=== PATIENT | male | born 1960 | race African-American/Black ===

== ENCOUNTER 2018-10-09 13:52 | Inpatient (IN) | payer OTHER ==
[2018-10-09 18:53] VITALS: BMI 28.0
[2018-10-09] MEDS ORDERED: IBUPROFEN 400 MG TABLET (FP) PO PRN (19:55)
[2018-10-09] MEDS ORDERED: MENTHOL/PHENOL 1 EACH UD MM PRN (19:55)
[2018-10-09] MEDS ORDERED: NICOTINE POLACRILEX 2 MG GUM BC PRN (19:55)
[2018-10-09] MEDS ORDERED: hydrOXYzine PAMOATE 50 MG CAPSULE (FP) PO PRN (19:55)
[2018-10-09] MEDS ORDERED: ACETAMINOPHEN 325 MG TABLET (FP) PO PRN (19:55)
[2018-10-09] MEDS ORDERED: guaiFENesin/D-METHORPHAN HB 10 ML UNIT-DOSE CUPS PO PRN (19:55)
[2018-10-09] MEDS ORDERED: P-EPHED 60MG/TRIPROLIDI 2.5MG TABLET PO PRN (19:55)
[2018-10-09] MEDS ORDERED: MAGNESIUM CITRATE 300 ML BOTTLE PO PRN (19:55)
[2018-10-09] MEDS ORDERED: MAG HYDROX/AL HYDROX/SIMETH 30 ML UNIT-DOSE CUP PO PRN (19:55)
[2018-10-09] MEDS ORDERED: LOPERAMIDE HCL 2 MG CAPSULE PO PRN (19:55)
[2018-10-09] MEDS ORDERED: MAGNESIUM HYDROX 2400MG/30ML ORAL SUSPENSION 30 ML CUP PO PRN (19:55)
--- NOTE | 2018-10-09 20:00 | HP ---
COWS - Scale Resting Pulse: 0= [place] 80 or Below Sweatin= Chills/Flushing Restless Observation: 1= Difficult to Sit Still Pupil Size: 0= Normal to Room Light Bone or Joint Aches: 2= Severe Diffuse Aches Runny Nose/ Eye Tearin= Runny Nose/Eyes GI Upset > 30mins: 2= Nausea/Diarrhea Tremor Observation: 1= Tremor [place], Not Seen Yawning Observation: 1= 1-2x During Session Anxiety or Irritability: 1=Feels Anxious/Irritable Goose Flesh Skin: 3=Piloerection COWS Score: 14 CIWA Score - Admission Criteria OAS Guidelines: Admission for Medically Managed Detox: Requires at least one of the followin. CIWA greater than 12 2. Seizures within the past 24 hours 3. Delirium tremens within the past 24 hours 4. Hallucinations within the past 24 hours 5. Acute intervention needed for co occurring medical disorder 6. Acute intervention needed for co occurring psychiatric disorder 7. Severe withdrawal that cannot be handled at a lower level of care (continued vomiting, continued diarrhea, abnormal vital signs) requiring intravenous medication and/or fluids 8. Admission [facility] Chief Complaint: WITHDRAWAL SYMPTOMS Allergies/Adverse Reactions: Allergies Allergy/AdvReac Type Severity Reaction Status Date / Time No Known Allergies Allergy Verified 10/09/18 18:43 History of Present Illness: 58 Y.O. MAN WITH A HISTORY OF HEROIN DEPENDENCE IS HERE SEEKING HIS FIRST ADMISSION TO DETOX. HE REPORTS THE LONGEST PERIOD OF ILLICIT DRUG ABSTINENCES HAS BEE "A FEW MONTHS". PMx: Htn, OA, Aortic aneurysm, incomplete bladder emptying, straight catherizes 4-5 x day, neuropathy, ambulates with the use of a cane Exam Limitations: Physical Impairment (A) - Ebola screening Have you traveled outside of the country in the last 21 days: No Have you had contact with anyone from an Ebola affected area: No Have you been sick,other than usual withdrawal symptoms: No Do you have a fever: No - Review of Systems Constitutional: Chills, Loss of Appetite, Night Sweats, Unintentional Wgt. Loss EENT: reports: Tearing, Nose Congestion, Dental Problems Respiratory: reports: No Symptoms reported GI: reports: Nausea, Abdominal cramping : reports: Other (URINARY RETENTION) Musculoskeletal: reports: Back Pain, Neck Pain Integumentary: reports: No Symptoms Reported Neuro: reports: Headache, Weakness, Unsteady Gait Endocrine: reports: No Symptoms Reported Hematology: reports: No Symptoms Reported Psychiatric: reports: Judgement Intact, Mood/Affect Appropiate, Orientated x3 Other Systems: Reviewed and Negative Patient History - Patient Medical History Hx Anemia: No Hx Asthma: No Hx Chronic Obstructive Pulmonary Disease (COPD): No Hx Cancer: No Hx Cardiac Disorders: No Hx Congestive Heart Failure: No Hx Hypertension: Yes Hx Hypercholesterolemia: No Hx Pacemaker: No HX Cerebrovascular Accident: No Hx Seizures: No Hx Dementia: No Hx Diabetes: No Hx Gastrointestinal Disorders: No Hx Liver Disease: No Hx Genitourinary Disorders: No Hx Sexually Transmitted Disorders: No Hx Renal Disease (ESRD): No Hx Thyroid Disease: No Hx Human Immunodeficiency Virus (HIV): No Hx Hepatitis C: No Hx Depression: No Hx Suicide Attempt: No Hx Bipolar Disorder: No Hx Schizophrenia: No Other Medical History: Aortic aneurysm 2003 - Patient Surgical History Past Surgical History: Yes Hx Neurologic Surgery: No Hx Cataract Extraction: No Hx Cardiac Surgery: No Hx Lung Surgery: No Hx Breast Surgery: No Hx Breast Biopsy: No Hx Abdominal Surgery: No Hx Appendectomy: No Hx Cholecystectomy: No Hx Genitourinary Surgery: No Hx Section: No Hx Orthopedic Surgery: Yes (Left knee 06/2017) Anesthesia Reaction: No - PPD History Previous Implant?: Yes Documented Results: Negative w/o proof PPD to be Administered?: Yes - Reproductive History Patient is a Female of Child Bearing Age (11 -55 yrs old): No - Smoking Cessation Smoking history: Current every day smoker Have you smoked in the past 12 months: Yes Aproximately how many cigarettes per day: 20 Initiated information on smoking cessation: Yes 'Breaking Loose' booklet given: 10/09/18 - Substance & Tx. History Hx Alcohol Use: No Hx Substance Use: No Substance Use Type: Heroin Hx Substance Use Treatment: No - Substances Abused Heroin Route: Inhalation Frequency: Daily Amount used: 6 BAGS Age of first use: 28 Date of Last Use: 10/09/18 Family Disease History - Family Disease History Family Disease History: CA: Sister Admission Physical Exam BHS - Vital Signs Vital Signs: Vital Signs - 24 hr 10/09/18 18:50 Temperature 97.4 F L Pulse Rate 69 Respiratory 18 Rate Blood Pressure 122/70 - Physical General Appearance: Yes: Sweating HEENTM: Yes: Within Normal Limits, Hearing grossly Normal, Normocephalic, Normal Voice Respiratory: Yes: Chest Non-Tender, Lungs Clear, Normal Breath Sounds, No Respiratory Distress, No Accessory Muscle Use Neck: Yes: Within Normal Limits, No masses,lesions,Nodules Breast: Yes: Breast Exam Deferred Cardiology: Yes: Regular Rhythm, Regular Rate Abdominal: Yes: Normal Bowel Sounds, Non Tender Genitourinary: Yes: Retention Back: Yes: Normal Inspection Musculoskeletal: Yes: Back pain, Joint Stiffness, Other (UNSTEADY,ANTALGIC GAIT) Extremities: Yes: Normal Capillary Refill, Normal Inspection Neurological: Yes: Fully Oriented, Alert, Normal Mood/Affect, Normal Response Integumentary: Yes: Normal Color, Warm Lymphatic: Yes: Within Normal Limits - Diagnostic (1) Hypertension Current Visit: Yes Status: Chronic (2) Opioid dependence with withdrawal Current Visit: Yes Status: Chronic (3) History of aortic aneurysm Current Visit: Yes Status: Acute (4) Urinary retention with incomplete bladder emptying Current Visit: Yes Status: Chronic Comment: SELF-CATHERIZES (5) Osteoarthritis Current Visit: Yes Status: Chronic (6) Unsteady gait Current Visit: Yes Status: Chronic (7) Use of cane as ambulatory aid Current Visit: Yes Status: Chronic (8) Neuropathy Current Visit: Yes Status: Chronic (9) Nicotine dependence Current Visit: Yes Status: Chronic Cleared for Admission [facility] - Detox or Rehab [facility] Level of Care: Medically Managed Detox Regimen/Protocol: Methadone [facility] Breath Alcohol Content Breath Alcohol Content: 0 Urine Drug Screen - Results Drug Screen Negative: No Urine Drug Screen Results: NORBERTO-Cocaine, OPI-Opiates, MDMA-Ecstasy
[2018-10-09] MEDS ORDERED: METHADONE HCL 10 MG TABLET (FOR DETOX USE ONLY) PO ONE ×2 (20:15→23:00)
[2018-10-09] MEDS: GABAPENTIN 400 MG CAPSULE (FP) PO SCH (23:17)
[2018-10-09] MEDS: THIAMINE HCL 100 MG TABLET (FP) PO SCH (23:17)
[2018-10-09] MEDS: diazePAM 5 MG TABLET PO PRN (23:19)
[2018-10-09] MEDS ORDERED: LABETALOL HCL 100 MG TABLET (FP) ONE (23:30)
[2018-10-09] MEDS: LABETALOL HCL 200 MG TABLET (FP) PO SCH (23:34)
[2018-10-10] MEDS: GABAPENTIN 400 MG CAPSULE (FP) PO SCH ×3 (06:27→22:18)
[2018-10-10 09:59] LABS: HEMATOCRIT 38.1 % (35.4-49); HEMOGLOBIN 12.5 GM/dL (11.7-16.9); MCH 29.2 pg (25.7-33.7); MCHC 32.8 g/dl (32.0-35.9); MEAN CELL VOLUME 89.1 fl (80-96); MEAN PLT VOLUME 9.3 fl (7.5-11.1); PLATELET COUNT 157 K/MM3 (134-434); RBC 4.27 M/mm3 (4.00-5.60); WHITE BLOOD COUNT 6.7 K/mm3 (4.0-10.0)
[2018-10-10] MEDS ORDERED: METHADONE HCL 10 MG TABLET (FOR DETOX USE ONLY) PO ONE (10:00)
[2018-10-10] MEDS: PRENATAL VITAMINS W/ FOLIC ACID TABLET (FP) PO SCH (10:14)
[2018-10-10] MEDS: diazePAM 5 MG TABLET PO PRN (10:14)
[2018-10-10] MEDS: NICOTINE 21 MG/24 HOURS TOPICAL PATCH TD SCH (10:15)
[2018-10-10] MEDS: LISINOPRIL 20 MG TABLET (FP) PO SCH (10:17)
[2018-10-10 10:45] LABS: ALBUMIN 3.8 g/dl (3.4-5.0); ALK PHOS 89 U/L (45-117); ANION GAP 4 MMOL/L (8-16); BILIRUBIN,TOTAL 1.4 mg/dL (0.2-1); BLOOD UREA NITROGEN 18 mg/dL (7-18); CHLORIDE 105 mmol/L (98-107); CO2 31 mmol/L (21-32); CREATININE 0.7 mg/dL (0.55-1.3); GLUCOSE,RANDOM 84 mg/dL (74-106); POTASSIUM 4.1 mmol/L (3.5-5.1); SGOT/AST 26 U/L (15-37); SGPT/ALT 25 U/L (13-61); SODIUM 140 mmol/L (136-145); TOT PROT 6.5 g/dl (6.4-8.2)
--- NOTE | 2018-10-10 10:49 | PN ---
BHS COWS - Scale Resting Pulse: 0= [place] 80 or Below Sweatin=Flushed/Facial Moisture Restless Observation: 1= Difficult to Sit Still Pupil Size: 0= Normal to Room Light Bone or Joint Aches: 2= Severe Diffuse Aches Runny Nose/ Eye Tearin= Runny Nose/Eyes GI Upset > 30mins: 0= None Tremor Observation of Outstretched Hands: 1= Tremor [place], Not Seen Yawning Observation: 2= >3x During Session Anxiety or Irritability: 2=Irritable/Anxious Goose Flesh Skin: 0=Smooth Skin COWS Score: 12 BHS Progress Note (SOAP) Subjective: body aches sweats shakes interrupted sleep headache Objective: 10/10/18 10:48 Vital Signs Temperature 98.4 F 10/10/18 09:28 Pulse Rate 67 10/10/18 09:28 Respiratory Rate 18 10/10/18 09:28 Blood Pressure 133/60 10/10/18 09:28 O2 Sat by Pulse Oximetry (%) Laboratory Tests 10/10/18 10/10/18 07:00 07:00 WBC 6.7 RBC 4.27 Hgb 12.5 Hct 38.1 MCV 89.1 MCH 29.2 MCHC 32.8 RDW 15.0 Plt Count 157 MPV 9.3 Sodium 140 Potassium 4.1 Chloride 105 Carbon Dioxide 31 Anion Gap 4 L BUN 18 Creatinine 0.7 Creat Clearance w eGFR > 60 Random Glucose 84 Calcium 9.0 Total Bilirubin 1.4 H AST 26 ALT 25 Alkaline Phosphatase 89 Total Protein 6.5 Albumin 3.8 aaox3 ambulating no acute distress Assessment: 10/10/18 10:49 withdrawal sx Plan: continue detox increase fluids
[2018-10-10] MEDS: LABETALOL HCL 200 MG TABLET (FP) PO SCH ×2 (11:01→22:18)
[2018-10-10] MEDS: NIFEdipine E.R. 90 MG TABLET (FP) PO SCH (11:01)
--- NOTE | 2018-10-10 12:55 | EKG ---
Test Reason : Blood Pressure : / mmHG Vent. Rate : 072 BPM Atrial Rate : 072 BPM P-R Int : 174 ms QRS Dur : 086 ms QT Int : 418 ms P-R-T Axes : 075 051 077 degrees QTc Int : 457 ms NORMAL SINUS RHYTHM POSSIBLE LEFT ATRIAL ENLARGEMENT NONSPECIFIC T WAVE ABNORMALITY ABNORMAL ECG NO PREVIOUS ECGS AVAILABLE Confirmed by YAHIR COELHO MD ([id number]) on 10/10/2018 12:55:15 PM Referred By: Confirmed By:YAHIR COELHO MD
[2018-10-10] MEDS: THIAMINE HCL 100 MG TABLET (FP) PO SCH (22:18)
[2018-10-11] MEDS: GABAPENTIN 400 MG CAPSULE (FP) PO SCH ×3 (06:47→22:30)
[2018-10-11] MEDS ORDERED: METHADONE HCL 5 MG TABLET (FOR DETOX USE ONLY) PO ONE (10:00)
[2018-10-11] MEDS: LISINOPRIL 20 MG TABLET (FP) PO SCH (10:57)
[2018-10-11] MEDS: PRENATAL VITAMINS W/ FOLIC ACID TABLET (FP) PO SCH (10:57)
[2018-10-11] MEDS: NIFEdipine E.R. 90 MG TABLET (FP) PO SCH (10:58)
[2018-10-11] MEDS: NICOTINE 21 MG/24 HOURS TOPICAL PATCH TD SCH (10:58)
[2018-10-11] MEDS: LABETALOL HCL 200 MG TABLET (FP) PO SCH ×2 (10:58→22:30)
--- NOTE | 2018-10-11 14:28 | PN ---
BHS COWS - Scale Resting Pulse: 0= [place] 80 or Below Sweatin= Chills/Flushing Restless Observation: 1= Difficult to Sit Still Pupil Size: 0= Normal to Room Light Bone or Joint Aches: 0= None Runny Nose/ Eye Tearin= Nasal Congestion GI Upset > 30mins: 0= None Tremor Observation of Outstretched Hands: 0= None Yawning Observation: 1= 1-2x During Session Anxiety or Irritability: 2=Irritable/Anxious Goose Flesh Skin: 3=Piloerection COWS Score: 9 BHS Progress Note (SOAP) Subjective: Fatigue, Anxious, Sweating. Objective: PATIENT A & O X 2 (UNCERTAIN ABOUT CURRENT DAY / DATE). PATIENT OBSERVED AMBULATING ON UNIT. IN NO ACUTE DISTRESS. 10/11/18 14:29 Vital Signs Temperature 98.4 F 10/11/18 13:42 Pulse Rate 73 10/11/18 13:42 Respiratory Rate 18 10/11/18 13:42 Blood Pressure 129/70 10/11/18 13:42 O2 Sat by Pulse Oximetry (%) Laboratory Tests 10/10/18 10/10/18 10/10/18 07:00 07:00 07:00 WBC 6.7 RBC 4.27 Hgb 12.5 Hct 38.1 MCV 89.1 MCH 29.2 MCHC 32.8 RDW 15.0 Plt Count 157 MPV 9.3 Sodium 140 Potassium 4.1 Chloride 105 Carbon Dioxide 31 Anion Gap 4 L BUN 18 Creatinine 0.7 Creat Clearance w eGFR > 60 Random Glucose 84 Calcium 9.0 Total Bilirubin 1.4 H AST 26 ALT 25 Alkaline Phosphatase 89 Total Protein 6.5 Albumin 3.8 RPR Titer Nonreactive LABS NOTED. Assessment: 10/11/18 14:30 WITHDRAWAL SYMPTOMS. Plan: CONTINUE DETOX. INCREASE DAILY PO FLUID INTAKE.
[2018-10-11] MEDS: THIAMINE HCL 100 MG TABLET (FP) PO SCH (22:30)
[2018-10-12] MEDS: GABAPENTIN 400 MG CAPSULE (FP) PO SCH ×3 (05:25→22:21)
[2018-10-12] MEDS ORDERED: METHADONE HCL 5 MG TABLET (FOR DETOX USE ONLY) PO ONE (10:00)
[2018-10-12] MEDS: PRENATAL VITAMINS W/ FOLIC ACID TABLET (FP) PO SCH (10:49)
[2018-10-12] MEDS: LISINOPRIL 20 MG TABLET (FP) PO SCH (10:49)
[2018-10-12] MEDS: NIFEdipine E.R. 90 MG TABLET (FP) PO SCH (10:49)
[2018-10-12] MEDS: NICOTINE 21 MG/24 HOURS TOPICAL PATCH TD SCH (10:50)
[2018-10-12] MEDS: LABETALOL HCL 200 MG TABLET (FP) PO SCH ×2 (10:50→22:21)
--- NOTE | 2018-10-12 13:15 | PN ---
BHS Progress Note (SOAP) Subjective: pt here for treatment of heroin dependence- says medication is helping withdrawal Sx O: Vital Signs - 24 hr 10/11/18 10/11/18 10/11/18 13:42 17:29 22:05 Temperature 98.4 F 99.0 F 99 F Pulse Rate 73 85 78 Respiratory 18 19 19 Rate Blood Pressure 129/70 134/70 152/75 10/12/18 10/12/18 10/12/18 00:30 03:30 06:45 Temperature 98.1 F Pulse Rate 71 Respiratory 18 18 18 Rate Blood Pressure 144/90 10/12/18 09:27 Temperature 98.1 F Pulse Rate 67 Respiratory 18 Rate Blood Pressure 147/76 Laboratory Tests 10/10/18 10/10/18 10/10/18 07:00 07:00 07:00 WBC 6.7 RBC 4.27 Hgb 12.5 Hct 38.1 MCV 89.1 MCH 29.2 MCHC 32.8 RDW 15.0 Plt Count 157 MPV 9.3 Sodium 140 Potassium 4.1 Chloride 105 Carbon Dioxide 31 Anion Gap 4 L BUN 18 Creatinine 0.7 Creat Clearance w eGFR > 60 Random Glucose 84 Calcium 9.0 Total Bilirubin 1.4 H AST 26 ALT 25 Alkaline Phosphatase 89 Total Protein 6.5 Albumin 3.8 RPR Titer Nonreactive a/p: continue opioid detox protocol: d/w pt option of suboxone and methadone Rx at discharge: pt states will go for NA meetings
[2018-10-12] MEDS: THIAMINE HCL 100 MG TABLET (FP) PO SCH (22:21)
[2018-10-12] MEDS: MELATONIN 5 MG TABLETS PO PRN (22:24)
[2018-10-13] MEDS: GABAPENTIN 400 MG CAPSULE (FP) PO SCH ×3 (06:19→21:45)
[2018-10-13] MEDS ORDERED: METHADONE HCL 10 MG TABLET (FOR DETOX USE ONLY) PO ONE (10:00)
[2018-10-13] MEDS: PRENATAL VITAMINS W/ FOLIC ACID TABLET (FP) PO SCH (10:34)
[2018-10-13] MEDS: LISINOPRIL 20 MG TABLET (FP) PO SCH (10:35)
[2018-10-13] MEDS: NIFEdipine E.R. 90 MG TABLET (FP) PO SCH (10:35)
[2018-10-13] MEDS: LABETALOL HCL 200 MG TABLET (FP) PO SCH ×2 (10:35→22:53)
[2018-10-13] MEDS: NICOTINE 21 MG/24 HOURS TOPICAL PATCH TD SCH (10:37)
--- NOTE | 2018-10-13 16:56 | PN ---
S Progress Note (SOAP) Subjective: no complaints offered Objective: 10/13/18 16:55 not in distress Vital Signs Temperature 97.3 F L 10/13/18 13:51 Pulse Rate 71 10/13/18 13:51 Respiratory Rate 18 10/13/18 13:51 Blood Pressure 147/71 10/13/18 13:51 O2 Sat by Pulse Oximetry (%) Assessment: 10/13/18 16:55 detox successful Plan: continue detox for d/c in a.m
[2018-10-13] MEDS: MELATONIN 5 MG TABLETS PO PRN (21:45)
[2018-10-13] MEDS: THIAMINE HCL 100 MG TABLET (FP) PO SCH (22:54)
[2018-10-14] MEDS: GABAPENTIN 400 MG CAPSULE (FP) PO SCH (05:26)
[2018-10-14] MEDS ORDERED: METHADONE HCL 5 MG TABLET (FOR DETOX USE ONLY) PO ONE (06:00)
[2018-10-14 09:37] VITALS: BP 159/73; PULSE 83; TEMP 98.2
[2018-10-14] MEDS: NIFEdipine E.R. 90 MG TABLET (FP) PO SCH (10:19)
[2018-10-14] MEDS: LABETALOL HCL 200 MG TABLET (FP) PO SCH (10:19)
[2018-10-14] MEDS: NICOTINE 21 MG/24 HOURS TOPICAL PATCH TD SCH (10:19)
[2018-10-14] MEDS: PRENATAL VITAMINS W/ FOLIC ACID TABLET (FP) PO SCH (10:19)
[2018-10-14] MEDS: LISINOPRIL 20 MG TABLET (FP) PO SCH (10:19)
--- NOTE | 2018-10-14 12:40 | DS ---
[facility] Detox Discharge Summary Admission Date: 10/09/18 Discharge Date: 10/14/18 - History Present History: Opioid Dependence Additional Comments: 58 years old male admitted on 10/09/18 for opiate withdrawal stabilization completed opiate detox regimen aftercare [facility] - Physical Exam Results Vital Signs: Vital Signs Temperature 98.2 F 10/14/18 09:36 Pulse Rate 83 10/14/18 09:36 Respiratory Rate 18 10/14/18 09:36 Blood Pressure 159/73 10/14/18 09:36 O2 Sat by Pulse Oximetry (%) Pertinent Admission Physical Exam Findings: opiate withdrawal sx Laboratory Last Values WBC 6.7 K/mm3 (4.0-10.0) 10/10/18 07:00 RBC 4.27 M/mm3 (4.00-5.60) 10/10/18 07:00 Hgb 12.5 GM/dL (11.7-16.9) 10/10/18 07:00 Hct 38.1 % (35.4-49) 10/10/18 07:00 MCV 89.1 fl (80-96) 10/10/18 07:00 MCH 29.2 pg (25.7-33.7) 10/10/18 07:00 MCHC 32.8 g/dl (32.0-35.9) 10/10/18 07:00 RDW 15.0 % (11.9-15.9) 10/10/18 07:00 Plt Count 157 K/MM3 (134-434) 10/10/18 07:00 MPV 9.3 fl (7.5-11.1) 10/10/18 07:00 Sodium 140 mmol/L (136-145) 10/10/18 07:00 Potassium 4.1 mmol/L (3.5-5.1) 10/10/18 07:00 Chloride 105 mmol/L (98-107) 10/10/18 07:00 Carbon Dioxide 31 mmol/L (21-32) 10/10/18 07:00 Anion Gap 4 MMOL/L (8-16) L 10/10/18 07:00 BUN 18 mg/dL (7-18) 10/10/18 07:00 Creatinine 0.7 mg/dL (0.55-1.3) 10/10/18 07:00 Creat Clearance w eGFR > 60 (>60) 10/10/18 07:00 Random Glucose 84 mg/dL (74-106) 10/10/18 07:00 Calcium 9.0 mg/dL (8.5-10.1) 10/10/18 07:00 Total Bilirubin 1.4 mg/dL (0.2-1) H 10/10/18 07:00 AST 26 U/L (15-37) 10/10/18 07:00 ALT 25 U/L (13-61) 10/10/18 07:00 Alkaline Phosphatase 89 U/L (45-117) 10/10/18 07:00 Total Protein 6.5 g/dl (6.4-8.2) 10/10/18 07:00 Albumin 3.8 g/dl (3.4-5.0) 10/10/18 07:00 RPR Titer Nonreactive (NONREACTIVE) 10/10/18 07:00 lab noted - Treatment Hospital Course: Detox Protocol Followed, Detoxed Safely, Responded well, Discharged Condition Good, Rehab Referral Accepted Patient has Accepted a Rehab Referral to: [facility] services - Medication Discharge Medications: Ambulatory Orders Gabapentin [Neurontin -] 400 mg PO TID 10/09/18 Meloxicam [Mobic (Nf) -] 15 mg PO DAILY 10/09/18 Labetalol HCl [Normodyne -] 200 mg PO BID #30 tablet 10/14/18 Lisinopril [Prinivil -] 40 mg PO DAILY #14 tablet 10/14/18 Nifedipine [Nifedipine ER] 90 mg PO DAILY #14 [id number] 10/14/18 - Diagnosis (1) Hypertension Status: Chronic Qualifiers: Hypertension type: unspecified Qualified Code(s): I10 - Essential (primary ) hypertension (2) Opioid dependence with withdrawal Status: Acute (3) Use of cane as ambulatory aid Status: Chronic - AMA Did Patient Leave Against Medical Advice: No
--- NOTE | 2018-11-27 11:42 | EKG ---
Test Reason : Blood Pressure : / mmHG Vent. Rate : 064 BPM Atrial Rate : 064 BPM P-R Int : 190 ms QRS Dur : 086 ms QT Int : 432 ms P-R-T Axes : 080 053 078 degrees QTc Int : 445 ms NORMAL SINUS RHYTHM NORMAL ECG WHEN COMPARED WITH ECG OF 09-OCT-2018 22:48, NO SIGNIFICANT CHANGE WAS FOUND Confirmed by Bobby Guzmán MD ([id number]) on 11/27/2018 11:42:08 AM Referred By: Confirmed By:Bobby Guzmán MD
== END 2018-10-14 10:38 | disposition home or self-care (01) | DRG 773 ==
LOC: YASAS 13:52 → Y6N 19:41
PROC: HZ2ZZZZ Detoxification Services for Substance Abuse Treatment (ICD-10-PCS; principal; 2018-10-09)
DX: F11.23 Opioid dependence with withdrawal (principal); F17.210 Nicotine dependence, cigarettes, uncomplicated; I10 Essential (primary) hypertension; G62.9 Polyneuropathy, unspecified; R33.8 Other retention of urine; M19.90 Unspecified osteoarthritis, unspecified site; R26.81 Unsteadiness on feet; Z99.89 Dependence on other enabling machines and devices; Z86.79 Personal history of other diseases of the circulatory system
CPT/HCPCS: 36415; 80053; 85027; 86593; 93005; 93010